=== PATIENT | female | born 1985 | race Caucasian/White ===

== ENCOUNTER 2022-03-23 09:20 | Outpatient (CLI) | payer OTHER ==
[~2022-03-23] VITALS: Ht 170.2 cm; Wt 90.7 kg
[2022-03-23] MEDS ORDERED: BUSPIRONE HCL5 MG PO (11:02)
[2022-03-23 11:03] LABS: HEMOGLOBIN 12.7 gm/dl (12.3-15.3); RED BLOOD COUNT 4.67 M/UL (4.00-5.10); WHITE BLOOD COUNT 7.5 K/UL (4.5-11.0)
[2022-03-23] MEDS ORDERED: CITALOPRAM HBR20 MG PO (11:03)
[2022-03-23 11:29] LABS: BUN/CREATININE RATIO 13 (0-10)
--- NOTE | 2022-03-23 19:14 | NUR ---
FIGURE 8 STITCH REMOVED AT 190 BY TOR LYNCH RN. PRESSURE HELD FOR APPROX 7 MINUTES. SITE IS CLEAN AND DRY, NO OOZING OR SIGNS OF HEMATOMA NOTED. PATIENT ON BEDREST X2 HOURS STARTING AT 1910. PATIENT HAS CALL LAM WITHIN REACH, INSTRUCTED TO NOTIFY NURSE IF ANY DISCOMFORT OR BLOOD NOTED TO RIGHT GROIN SITE.
== END 2022-03-23 21:15 | disposition home or self-care (01) ==
LOC: CATH 09:20 → PROG CARE 17:31 → CATH 21:15
PROVIDERS: Internal Medicine Cardiovascular Disease
DX: I47.1 Supraventricular tachycardia (principal); Z87.891 Personal history of nicotine dependence
CPT/HCPCS: 71045; 80048; 84703; 85025; 90686; 93620; 93621; 93623; 99152; 99153; C1730; C1766; J1644; J2250; J2405; J3010; J7040; J7050